=== PATIENT | female | born 1980 | race Hispanic/Latino ===

== ENCOUNTER 2018-07-27 08:24 | Emergency (ER) | payer SELFPAY ==
[~2018-07-27] VITALS: Ht 152.4 cm; Wt 86.2 kg
--- OUTSIDE RECORDS SUMMARY | 2018-07-27 08:26 | XMS REPORT | Clinical Summary ---
Author Author [facility] Organization Formerly [facility] Address Unknown Phone Unavailable Care Team Providers Care Shear Helper Name Role Phone Pcp, No PCP Unavailable Allergies No Known Allergies Medications End Date Status Medication Sig Dispensed Refills Start Date 06/28/2018 Discontinued nitrofurantoin, Take 1 10 capsule 0 macrocrystal-monohydrate, capsule (100 9 (MACROBID) 100 MG capsule mg total) by mouth 2 (two) times daily for 5 days. Active Problems Not on file Encounters Care Team Description Date Type Specialty Philip Jackson MD Globus sensation (Primary Dx) 06/28/2018 Emergency Emergency Medicine 06/28/2018 Travel after 07/26/2017 Social History Date Tobacco Use Types Packs/Day Years Used Never Assessed Sex Assigned at Date Recorded Not on file Industry Job Start Date Occupation Not on file Not on file Not on file Travel End Travel History Travel Start No recent travel history available. Last Filed Vital Signs Time Taken Vital Sign Reading 06/28/2018 8:15 AM POST TENSIONING IRONWORK[employer] HELPER Blood Pressure 115/90 06/28/2018 8:15 AM POST TENSIONING IRONWORKER HELPER Pulse 90 06/28/2018 5:42 AM POST TENSIONING IRONWORKER HELPER Temperature 36.9 C (98.5 F) 06/28/2018 5:42 AM POST TENSIONING IRONWORKER HELPER Respiratory Rate 18 06/28/2018 8:15 AM POST TENSIONING IRONWORKER HELPER Oxygen Saturation 100% - Inhaled Oxygen - Concentration 06/28/2018 5:42 AM POST TENSIONING IRONWORKER HELPER Weight 74.8 kg (165 lb) 06/28/2018 5:42 AM POST TENSIONING IRONWORKER HELPER Height 149.9 cm (4' 11") 06/28/2018 5:42 AM POST TENSIONING IRONWORKER HELPER Body Mass Index 33.33 Plan of Treatment Not on file Procedures Comments Procedure Name Priority Date/Time Associated Diagnosis XR NECK SOFT TISSUE STAT 06/28/2018 6:43 AM POST TENSIONING IRONWORKER HELPER after 07/26/2017 Results * XR neck soft tissue (06/28/2018 6:43 AM POST TENSIONING IRONWORKER HELPER) Narrative Performed At Addendum Begins GE RIS REPORT STATUS:A The following addendum is being made to expand on the patient's clinical history, and does not substantially change the findings or recommendations of the original report. Additional history: Retained food bolus Signed: JR Rodriguez Robert MD Report Verified Date/Time:07/14/2018 11:12:42 Reading Location: [address] Reading Room Addendum Ends FINAL REPORT RAD, NECK, SOFT TISSUE INDICATION: possible foreign body COMPARISON: None FINDINGS: Frontal and lateral views of the cervical soft tissues. Examination is limited by body habitus. Prevertebral soft tissue structures are unremarkable. Visible portions of the aerodigestive tract are clear. The epiglottis is normal in size. No acute osseous abnormality is present. The temporomandibular joints are normally aligned. IMPRESSION: Limited by body habitus. No foreign object in the visible aerodigestive tract. If there is high clinical suspicion, consider CT evaluation. Signed: JR Rodriguez Robert MD Report Verified Date/Time:06/28/2018 07:28:49 Reading Location: [address] Reading Room Procedure Note Interface, External Ris In - 07/14/2018 11:14 AM CDT Addendum Begins REPORT STATUS:A The following addendum is being made to expand on the patient's clinical history, and does not substantially change the findings or recommendations of the original report. Additional history: Retained food bolus Signed: JR Rodriguez Robert MD Report Verified Date/Time: 07/14/2018 11:12:42 Reading Location: [address] Reading Room Addendum Ends FINAL REPORT RAD, NECK, SOFT TISSUE INDICATION: possible foreign body COMPARISON: None FINDINGS: Frontal and lateral views of the cervical soft tissues. Examination is limited by body habitus. Prevertebral soft tissue structures are unremarkable. Visible portions of the aerodigestive tract are clear. The epiglottis is normal in size. No acute osseous abnormality is present. The temporomandibular joints are normally aligned. IMPRESSION: Limited by body habitus. No foreign object in the visible aerodigestive tract. If there is high clinical suspicion, consider CT evaluation. Signed: JR Rodriguez Robert MD Report Verified Date/Time: 06/28/2018 07:28:49 Reading Location: [facility] C013V Neuro Reading Room Performing Organization Address City/State/Zipcode Phone Number GE RIS after 07/26/2017
--- OUTSIDE RECORDS SUMMARY | 2018-07-27 08:26 | XMS REPORT ---
Author Author [facility] Address Unknown Phone Unavailable Care Team Providers Care Property Insurance Agent Name Role Phone Unavailable Unavailable Payers Payer Name Policy Type Policy Number Effective Date Expiration Date Problems This patient has no known problems. Allergies, Adverse Reactions, Alerts Allergy Name Allergy Type Status Severity Reaction(s) Onset Date Inactive Date Treating Clinician Comments No Known Allergies DA Active U 2018 00:00:00 No Known Allergies DA Active U 2017-03-20 00:00:00 Medications This patient has no known medications. Results Test Description Test Time Test Comments Text Results Atomic Results Result Comments TROPONIN-I 2018-07-25 11:58:00 TROPONIN-I (test code=TROPI) <0.015 ng/mL 0-0.045 COMMENTS TO TEXTILE KNITTER: COLLECT 3 HOURS AFTER PREVIOUS [id number] 09:31:00* Test Item Value Reference Range Comments TROPONIN-I (test code=TROPI) <0.015 ng/mL 0-0.045 COMMENTS TO TEXTILE KNITTER: COLLECT 3 HOURS AFTER PREVIOUS SAMPLEURINALYSIS [id number] 01:33:00* Test Item Value Reference Range Comments UA COLOR (test code=COLU) YELLOW YELLOW UA APPEARANCE (test code=APPU) SLIGHTLY CLOUDY CLEAR UA GLUCOSE DIPSTICK (test code=DGLUU) NEGATIVE mg/dL NEGATIVE UA BILIRUBIN DIPSTICK (test code=BILU) NEGATIVE mg/dL NEGATIVE UA KETONE DIPSTICK (test code=KETU) Negative mg/dL NEGATIVE UA SPECIFIC GRAVITY (test code=SGU) 1.029 1.001-1.035 UA BLOOD DIPSTICK (test code=KIRAN) 1+ (Small) NEGATIVE UA PH DIPSTICK (test code=JASVIR) 5.0 5.0-8.0 UA PROTEIN DIPSTICK (test code=PROU) Negative mg/dL NEGATIVE UA UROBILINIOGEN DIPSTICK (test code=URO) 2.0 mg/dL NEGATIVE UA NITRITE DIPSTICK (test code=LORAINE) NEGATIVE NEGATIVE UA LEUKOCYTE ESTERASE W REFLEX (test code=LEUUR) NEGATIVE NEGATIVE UA WBC (test code=WBCU) 0-5 #/HPF 0-5 UA RBC (test code=RBCU) 6-10 #/HPF 0-5 UA EPITHELIAL CELLS (test code=EPIU) FEW per HPF FEW UA BACTERIA (test code=BACU) FEW #/HPF NONE UA MUCUS (test code=MUCU) FEW #/LPF FEW Urine Source? Clean Catch- CT ABD PELVIS [id number] 01:15:00 Name: BALTAZAR FAYE [facility] : 1980 Age/S: 38 / F [address] [facility] Unit #: [id number] Loc: [place] [address] Phys: Jordan Krishna MD Acct: [id number] Di s Date: Status: REG ER PHONE #: [phone] Exam Date: 07/25/2018 0057 FAX #: [phone] Reason: LLQ pain EXAMS: CPT CODE: [id number] CT ABD PELVIS W/CONT [id number] EXAM: - CT ABD PELVIS W/ CONT HISTORY: Left lower quadrant pain. TECHNIQUE: A xial tomograms through the abdomen and pelvis were obtained after intraven ous contrast. Coronal and sagittal reformatted images are provided. This exam was performed according to our departmental dose-optimization program, which includes automated exposure control, adjustment of the mA a nd/or kV according to patient size and/or use of iterative reconstruction technique. COMPARISON: 03/30/2017. FINDINGS: The visualized lung bases are clear. Status post cholecyste ctomy. There is fatty infiltration of the liver. The spleen, pancreas, adr enal glands and kidneys demonstrate no significant abnormalities. There is acute inflammation in left lower quadrant were colon divert iculosis. There is no evidence of free air or fluid collection. T he bowel is not distended. There is no adenopathy or free fluid. There is no acute osseous abnormality. IMPR ESSION: Acute sigmoid colon diverticulitis. Electr onically Signed by Cristian Tello MD on 07/25/2018 at 0115 Reported and signed by: Cristian Tello MD PAGE 1 Signed Report (CONTINUED) Name: [facility] : 1980 Age/S: 38 / F [address] [facility] Unit #: [id number] Loc: [place] [address] Phys: Jordan Krishna MD Acct: [id number] Dis Date: Status: REG ER PHONE #: [phone] Exam Date: 005 FAX #: [phone] Reason: LLQ pain EXAMS: CPT CODE: [id number] CT ABD PELVIS W/CONT [id number] <Continued> CC: Jordan Krishna MD Technologist:LIMA ALLEN, RT; Andrea Medina CTDI: DLP: Trnscb Date/Time: 07/25/2018 (011) [email or web address] Orig Print D/T: S: 07/25/2018 (0118) CTDI: DLP: PAGE 2 Signed Report BASIC METABOLIC [id number] 00:30:00* Test Item Value Reference Range Comments SODIUM (test code=NA) 140 mmol/L 136-145 POTASSIUM (test code=K) 3.7 mmol/L 3.5-5.1 CHLORIDE (test code=CL) 108.0 mmol/L 98-107 CARBON DIOXIDE (test code=CO2) 27.0 mmol/L 21-32 ANION GAP (test code=GAP) 8.7 10-20 GLUCOSE (test code=GLU) 112 mg/dL 74-106 BLOOD UREA NITROGEN (test code=BUN) 13 mg/dL 7-18 GLOMERULAR FILTRATION RATE (test code=GFR) > 60 mL/min >=60 Estimated GFR by using Modified MDRD formula.Chronic kidney disease is defined as either kidney damageor GFR <60 mL/min/1.73 m2 for >3 months. CREATININE (test code=CREAT) 0.90 mg/dL 0.55-1.02 Note change in reference range due to change in reagent. BUN/CREATININE RATIO (test code=BUN/CREA) 14.4 10-20 CALCIUM (test code=CA) 9.1 mg/dL 8.5-10.1 HEPATIC FUNCTION [id number] 00:30:00* Test Item Value Reference Range Comments TOTAL PROTEIN (test code=PROT) 7.7 gram/dL 6.4-8.2 ALBUMIN (test code=ALB) 4.0 g/dL 3.4-5.0 GLOBULIN (test code=GLOB) 3.7 gram/dL 2.7-4.2 ALBUMIN/GLOBULIN RATIO (test code=A/G) 1.1 0.75-1.50 BILIRUBIN TOTAL (test code=BILT) 0.40 mg/dL 0.0-1.0 BILIRUBIN DIRECT (test code=BILD) 0.08 mg/dL 0.0-0.20 SGOT/AST (test code=AST) 20 IUnit/L 15-37 SGPT/ALT (test code=ALT) 43 IUnit/L 12-78 ALKALINE PHOSPHATASE TOTAL (test code=ALKP) 95 IUnit/L 45-117 Note change in reference range due to change in reagent. [id number] 00:30:00* Test Item Value Reference Range Comments LIPASE (test code=LIP) 93 U/L 73.0-393.0 HCG SERUM [id number] 00:30:00* Test Item Value Reference Range Comments HCG SERUM QUAL (test code=HCGQL) NEGATIVE NEGATIVE This HCGQL test is NOT applicable for MALE patients.Check with nurse about probable order error.If Tumor Marker Test needed, nurse should order test "HCGTU"(Test #550.04977) BASIC METABOLIC [id number] 23:18:00* Test Item Value Reference Range Comments SODIUM (test code=NA) 140 mmol/L 136-145 POTASSIUM (test code=K) 3.7 mmol/L 3.5-5.1 CHLORIDE (test code=CL) 108.0 mmol/L 98-107 CARBON DIOXIDE (test code=CO2) 27.0 mmol/L 21-32 ANION GAP (test code=GAP) 8.7 10-20 GLUCOSE (test code=GLU) 112 mg/dL 74-106 BLOOD UREA NITROGEN (test code=BUN) 13 mg/dL 7-18 GLOMERULAR FILTRATION RATE (test code=GFR) > 60 mL/min >=60 Estimated GFR by using Modified MDRD formula.Chronic kidney disease is defined as either kidney damageor GFR <60 mL/min/1.73 m2 for >3 months. CREATININE (test code=CREAT) 0.90 mg/dL 0.55-1.02 Note change in reference range due to change in reagent. BUN/CREATININE RATIO (test code=BUN/CREA) 14.4 10-20 CALCIUM (test code=CA) 9.1 mg/dL 8.5-10.1 HEPATIC FUNCTION [id number] 23:18:00* Test Item Value Reference Range Comments TOTAL PROTEIN (test code=PROT) 7.7 gram/dL 6.4-8.2 ALBUMIN (test code=ALB) 4.0 g/dL 3.4-5.0 GLOBULIN (test code=GLOB) 3.7 gram/dL 2.7-4.2 ALBUMIN/GLOBULIN RATIO (test code=A/G) 1.1 0.75-1.50 BILIRUBIN TOTAL (test code=BILT) 0.40 mg/dL 0.0-1.0 BILIRUBIN DIRECT (test code=BILD) 0.08 mg/dL 0.0-0.20 SGOT/AST (test code=AST) 20 IUnit/L 15-37 SGPT/ALT (test code=ALT) 43 IUnit/L 12-78 ALKALINE PHOSPHATASE TOTAL (test code=ALKP) 95 IUnit/L 45-117 Note change in reference range due to change in reagent. [id number] 23:18:00* Test Item Value Reference Range Comments LIPASE (test code=LIP) 93 U/L 73.0-393.0 HCG SERUM [id number] 23:18:00* Test Item Value Reference Range Comments HCG SERUM QUAL (test code=HCGQL) NEGATIVE BASIC METABOLIC [id number] 23:15:00* Test Item Value Reference Range Comments SODIUM (test code=NA) 140 mmol/L 136-145 POTASSIUM (test code=K) 3.7 mmol/L 3.5-5.1 CHLORIDE (test code=CL) 108.0 mmol/L 98-107 CARBON DIOXIDE (test code=CO2) mmol/L 21-32 ANION GAP (test code=GAP) 10-20 GLUCOSE (test code=GLU) mg/dL 74-106 BLOOD UREA NITROGEN (test code=BUN) mg/dL 7-18 GLOMERULAR FILTRATION RATE (test code=GFR) mL/min >=60 CREATININE (test code=CREAT) mg/dL 0.55-1.02 BUN/CREATININE RATIO (test code=BUN/CREA) 10-20 CALCIUM (test code=CA) mg/dL 8.5-10.1 HEPATIC FUNCTION [id number] 23:15:00* Test Item Value Reference Range Comments TOTAL PROTEIN (test code=PROT) gram/dL 6.4-8.2 ALBUMIN (test code=ALB) g/dL 3.4-5.0 GLOBULIN (test code=GLOB) gram/dL 2.7-4.2 ALBUMIN/GLOBULIN RATIO (test code=A/G) 0.75-1.50 BILIRUBIN TOTAL (test code=BILT) mg/dL 0.0-1.0 BILIRUBIN DIRECT (test code=BILD) mg/dL 0.0-0.20 SGOT/AST (test code=AST) IUnit/L 15-37 SGPT/ALT (test code=ALT) IUnit/L 12-78 ALKALINE PHOSPHATASE TOTAL (test code=ALKP) IUnit/L 45-117 [id number] 23:15:00* Test Item Value Reference Range Comments LIPASE (test code=LIP) U/L 73.0-393.0 HCG SERUM [id number] 23:15:00* Test Item Value Reference Range Comments HCG SERUM QUAL (test code=HCGQL) NEGATIVE TROPONIN I [id number] 23:01:00* Test Item Value Reference Range Comments TROPONIN I RAPID (test code=TROPIRAP) 0.00 ng/mL <0.08 Please Note New Reference Range 0.00-0.079 ng/mL - Negative>or=0.08 ng/mL - Positive The use of serial sampling and testing protocol is arecommended practice.An elevated troponin level alone is often not sufficient fordiagnosis of myocardial infarction. Troponin results obtained by different assays may vary.Evaluation of the extent of myocardial damage based onincrease of troponin would be valid only if similarmethodology is used. CBC W/O [id number] 22:55:00* Test Item Value Reference Range Comments WHITE BLOOD CELL (test code=WBC) K/mm3 4.5-12.5 RED BLOOD CELL (test code=RBC) mill/mm3 3.7-5.2 HEMOGLOBIN (test code=HGB) 14.4 gram/dL 11.5-15.5 HEMATOCRIT (test code=HCT) 44.7 % 36.0-46.0 MEAN CELL VOLUME (test code=MCV) fL 80-98 MEAN CELL HGB (test code=MCH) picogram 27.0-33.0 MEAN CELL HGB CONCETRATION (test code=MCHC) gram/dL 33.0-36.0 RED CELL DISTRIBUTION WIDTH (test code=RDW) % 11.6-16.2 PLATELET COUNT (test code=PLT) K/mm3 150-450 MEAN PLATELET VOLUME (test code=MPV) fL 6.7-11.0 CBC W/O [id number] 22:55:00* Test Item Value Reference Range Comments WHITE BLOOD CELL (test code=WBC) 13.7 K/mm3 4.5-12.5 RED BLOOD CELL (test code=RBC) 5.10 mill/mm3 3.7-5.2 HEMOGLOBIN (test code=HGB) 14.4 gram/dL 11.5-15.5 HEMATOCRIT (test code=HCT) 44.7 % 36.0-46.0 MEAN CELL VOLUME (test code=MCV) 87.6 fL 80-98 MEAN CELL HGB (test code=MCH) 28.2 picogram 27.0-33.0 MEAN CELL HGB CONCETRATION (test code=MCHC) 32.2 gram/dL 33.0-36.0 RED CELL DISTRIBUTION WIDTH (test code=RDW) 12.4 % 11.6-16.2 PLATELET COUNT (test code=PLT) 328 K/mm3 150-450 MEAN PLATELET VOLUME (test code=MPV) 11.1 fL 6.7-11.0 RAD, NECK, SOFT [id number] 11:12:00Reason for exam:->possible foreign body Addendum BeginsREPORT STATUS:A The following addendum is being made to expand on the patient's clinical history, and does not substantial ly change the findings or recommendations of the original report. Additional his tory: Retained food bolus Signed: JR Rodriguez Robert MDReport Verified Jayjay e/Time: 07/14/2018 11:12:42 Reading Location: [facility] C013 Neuro Reading RoomAd dendum EndsFINAL REPORT RAD, NECK, SOFT TISSUE INDICATION : possible foreign body COMPARISON: None FINDINGS:Frontal and lateral views of t he cervical soft tissues. Examination is limited by body habitus. Prevertebral s oft tissue structures are unremarkable. Visible portions of the aerodigestive tr act are clear. The epiglottis is normal in size. No acute osseous abnormality is present. The temporomandibular joints are normally aligned. IMPRESSION: Limited by body habitus. No foreign object in the visible aerodigestive tract. If there is high clinical suspicion, consider CT evaluation. Signed: JR Rodriguez Robert MDReport Verified Date/Time: 06/28/2018 07:28:49 Reading Location: [facility] C013 Neuro Reading Room Electronically signed by: ANSHUL gonzalez 07/14/2018 11:12 AM URINALYSIS [id number] 01:37:00* Test Item Value Reference Range Comments UA COLOR (test code=COLU) YELLOW YELLOW UA APPEARANCE (test code=APPU) CLEAR CLEAR UA GLUCOSE DIPSTICK (test code=DGLUU) NEGATIVE mg/dL NEGATIVE UA BILIRUBIN DIPSTICK (test code=BILU) NEGATIVE mg/dL NEGATIVE UA KETONE DIPSTICK (test code=KETU) Negative mg/dL NEGATIVE UA SPECIFIC GRAVITY (test code=SGU) 1.014 1.001-1.035 UA BLOOD DIPSTICK (test code=KIRAN) 1+ (Small) NEGATIVE UA PH DIPSTICK (test code=JASVIR) 5.0 5.0-8.0 UA PROTEIN DIPSTICK (test code=PROU) Negative mg/dL NEGATIVE UA UROBILINIOGEN DIPSTICK (test code=URO) NEGATIVE mg/dL NEGATIVE UA NITRITE DIPSTICK (test code=LORAINE) NEGATIVE NEGATIVE UA LEUKOCYTE ESTERASE W REFLEX (test code=LEUUR) NEGATIVE NEGATIVE UA WBC (test code=WBCU) 0-5 #/HPF 0-5 UA RBC (test code=RBCU) 0-2 #/HPF 0-5 UA EPITHELIAL CELLS (test code=EPIU) FEW per HPF FEW UA BACTERIA (test code=BACU) FEW #/HPF NONE UA MUCUS (test code=MUCU) FEW #/LPF FEW Urine Source? Clean CatchDRUGS OF ABUSE SCREEN [id number] 01:37:00* Test Item Value Reference Range Comments URN COCAINE (test code=COCAURN) NEGATIVE <300 ng/mL URN CANNABINOIDS (test code=CANNABURN) NEGATIVE <50 ng/mL URN AMPHETAMINE (test code=AMPHETURN) NEGATIVE <1000 ng/mL URN BARBITURATE (test code=BARBITURN) NEGATIVE <200 ng/mL URN BENZODIAZEPINE (test code=BENZOURN) NEGATIVE <200 ng/mL URN OPIATES (test code=OPIATURN) NEGATIVE <300 ng/mL URN PHENCYCLIDINE (PCP) (test code=PHENCURN) NEGATIVE <25 ng/mL URN METHADONE (test code=METHAURN) NEGATIVE <300 ng/mL Urine Source? Clean CatchURINALYSIS [id number] 01:27:00* Test Item Value Reference Range Comments UA COLOR (test code=COLU) YELLOW YELLOW UA APPEARANCE (test code=APPU) CLEAR CLEAR UA GLUCOSE DIPSTICK (test code=DGLUU) NEGATIVE mg/dL NEGATIVE UA BILIRUBIN DIPSTICK (test code=BILU) NEGATIVE mg/dL NEGATIVE UA KETONE DIPSTICK (test code=KETU) Negative mg/dL NEGATIVE UA SPECIFIC GRAVITY (test code=SGU) 1.014 1.001-1.035 UA BLOOD DIPSTICK (test code=KIRAN) 1+ (Small) NEGATIVE UA PH DIPSTICK (test code=JASVIR) 5.0 5.0-8.0 UA PROTEIN DIPSTICK (test code=PROU) Negative mg/dL NEGATIVE UA UROBILINIOGEN DIPSTICK (test code=URO) NEGATIVE mg/dL NEGATIVE UA NITRITE DIPSTICK (test code=LORAINE) NEGATIVE NEGATIVE UA LEUKOCYTE ESTERASE W REFLEX (test code=LEUUR) NEGATIVE NEGATIVE UA WBC (test code=WBCU) 0-5 #/HPF 0-5 UA RBC (test code=RBCU) 0-2 #/HPF 0-5 UA EPITHELIAL CELLS (test code=EPIU) FEW per HPF FEW UA BACTERIA (test code=BACU) FEW #/HPF NONE UA MUCUS (test code=MUCU) FEW #/LPF FEW Urine Source? Clean CatchDRUGS OF ABUSE SCREEN [id number] 01:27:00* Test Item Value Reference Range Comments URN COCAINE (test code=COCAURN) <300 ng/mL URN CANNABINOIDS (test code=CANNABURN) <50 ng/mL URN AMPHETAMINE (test code=AMPHETURN) <1000 ng/mL URN BARBITURATE (test code=BARBITURN) <200 ng/mL URN BENZODIAZEPINE (test code=BENZOURN) <200 ng/mL URN OPIATES (test code=OPIATURN) <300 ng/mL URN PHENCYCLIDINE (PCP) (test code=PHENCURN) <25 ng/mL URN METHADONE (test code=METHAURN) <300 ng/mL Urine Source? Clean CatchBASIC METABOLIC [id number] 00:47:00* Test Item Value Reference Range Comments SODIUM (test code=NA) 142 mmol/L 136-145 POTASSIUM (test code=K) 3.3 mmol/L 3.5-5.1 CHLORIDE (test code=CL) 106.0 mmol/L 98-107 CARBON DIOXIDE (test code=CO2) 28.0 mmol/L 21-32 ANION GAP (test code=GAP) 11.3 10-20 GLUCOSE (test code=GLU) 108 mg/dL 74-106 BLOOD UREA NITROGEN (test code=BUN) 11 mg/dL 7-18 GLOMERULAR FILTRATION RATE (test code=GFR) > 60 mL/min >=60 Estimated GFR by using Modified MDRD formula.Chronic kidney disease is defined as either kidney damageor GFR <60 mL/min/1.73 m2 for >3 months. CREATININE (test code=CREAT) 0.80 mg/dL 0.55-1.02 Note change in reference range due to change in reagent. BUN/CREATININE RATIO (test code=BUN/CREA) 13.0 10-20 CALCIUM (test code=CA) 9.0 mg/dL 8.5-10.1 HCG SERUM [id number] 00:47:00* Test Item Value Reference Range Comments HCG SERUM QUAL (test code=HCGQL) NEGATIVE NEGATIVE This HCGQL test is NOT applicable for MALE patients.Check with nurse about probable order error.If Tumor Marker Test needed, nurse should order test "HCGTU"(Test #550.97355) [id number] 00:47:00* Test Item Value Reference Range Comments TROPONIN-I (test code=TROPI) <0.015 ng/mL 0-0.045 BASIC METABOLIC [id number] 00:33:00* Test Item Value Reference Range Comments SODIUM (test code=NA) 142 mmol/L 136-145 POTASSIUM (test code=K) 3.3 mmol/L 3.5-5.1 CHLORIDE (test code=CL) 106.0 mmol/L 98-107 CARBON DIOXIDE (test code=CO2) mmol/L 21-32 ANION GAP (test code=GAP) 10-20 GLUCOSE (test code=GLU) mg/dL 74-106 BLOOD UREA NITROGEN (test code=BUN) mg/dL 7-18 GLOMERULAR FILTRATION RATE (test code=GFR) mL/min >=60 CREATININE (test code=CREAT) mg/dL 0.55-1.02 BUN/CREATININE RATIO (test code=BUN/CREA) 10-20 CALCIUM (test code=CA) mg/dL 8.5-10.1 HCG SERUM [id number] 00:33:00* Test Item Value Reference Range Comments HCG SERUM QUAL (test code=HCGQL) NEGATIVE NEGATIVE This HCGQL test is NOT applicable for MALE patients.Check with nurse about probable order error.If Tumor Marker Test needed, nurse should order test "HCGTU"(Test #550.51169) [id number] 00:33:00* Test Item Value Reference Range Comments TROPONIN-I (test code=TROPI) ng/mL 0-0.045 BASIC METABOLIC [id number] 00:32:00* Test Item Value Reference Range Comments SODIUM (test code=NA) 142 mmol/L 136-145 POTASSIUM (test code=K) 3.3 mmol/L 3.5-5.1 CHLORIDE (test code=CL) 106.0 mmol/L 98-107 CARBON DIOXIDE (test code=CO2) mmol/L 21-32 ANION GAP (test code=GAP) 10-20 GLUCOSE (test code=GLU) mg/dL 74-106 BLOOD UREA NITROGEN (test code=BUN) mg/dL 7-18 GLOMERULAR FILTRATION RATE (test code=GFR) mL/min >=60 CREATININE (test code=CREAT) mg/dL 0.55-1.02 BUN/CREATININE RATIO (test code=BUN/CREA) 10-20 CALCIUM (test code=CA) mg/dL 8.5-10.1 HCG SERUM [id number] 00:32:00* Test Item Value Reference Range Comments HCG SERUM QUAL (test code=HCGQL) NEGATIVE [id number] 00:32:00* Test Item Value Reference Range Comments TROPONIN-I (test code=TROPI) ng/mL 0-0.045 CBC W/O [id number] 00:14:00* Test Item Value Reference Range Comments WHITE BLOOD CELL (test code=WBC) 14.5 K/mm3 4.5-12.5 RED BLOOD CELL (test code=RBC) 4.86 mill/mm3 3.7-5.2 HEMOGLOBIN (test code=HGB) 14.1 gram/dL 11.5-15.5 HEMATOCRIT (test code=HCT) 42.8 % 36.0-46.0 MEAN CELL VOLUME (test code=MCV) 88.1 fL 80-98 MEAN CELL HGB (test code=MCH) 29.0 picogram 27.0-33.0 MEAN CELL HGB CONCETRATION (test code=MCHC) 32.9 gram/dL 33.0-36.0 RED CELL DISTRIBUTION WIDTH (test code=RDW) 12.7 % 11.6-16.2 PLATELET COUNT (test code=PLT) 304 K/mm3 150-450 MEAN PLATELET VOLUME (test code=MPV) 10.4 fL 6.7-11.0 CBC W/O [id number] 00:13:00* Test Item Value Reference Range Comments WHITE BLOOD CELL (test code=WBC) K/mm3 4.5-12.5 RED BLOOD CELL (test code=RBC) mill/mm3 3.7-5.2 HEMOGLOBIN (test code=HGB) 14.1 gram/dL 11.5-15.5 HEMATOCRIT (test code=HCT) 42.8 % 36.0-46.0 MEAN CELL VOLUME (test code=MCV) fL 80-98 MEAN CELL HGB (test code=MCH) picogram 27.0-33.0 MEAN CELL HGB CONCETRATION (test code=MCHC) gram/dL 33.0-36.0 RED CELL DISTRIBUTION WIDTH (test code=RDW) % 11.6-16.2 PLATELET COUNT (test code=PLT) K/mm3 150-450 MEAN PLATELET VOLUME (test code=MPV) fL 6.7-11.0
[2018-07-27] MEDS ORDERED: METRONIDAZOLE 500MG/NS 100ML 100 ML IV STA (09:26)
[2018-07-27] MEDS ORDERED: LEVOFLOXACIN 750MG/D5W 150ML 150 ML IV STA (09:26)
[2018-07-27] MEDS ORDERED: TRAMADOL HCL 50 MG TAB PO ONE (09:30)
[2018-07-27 10:31] LABS: CLARITY,URINE HAZY (CLEAR); COLOR,URINE YELLOW (YELLOW)
[2018-07-27 10:32] LABS: BILIRUBIN,URINE NEGATIVE (NEGATIVE); KETONES,URINE TRACE (NEGATIVE); LEUKOCYTE ESTERASE ,URINE TRACE (NEGATIVE); NITRITE,URINE NEGATIVE (NEGATIVE); PROTEIN,URINE DIPSTICK NEGATIVE (NEGATIVE); URINE UROBILINOGEN 0.2 mg/dL (0.2 - 1)
[2018-07-27 11:21] LABS: EPITHELIAL CELLS,URINE MANY /LPF; RBC,URINE 0-5 /HPF (0-5)
[2018-07-27 11:22] LABS: BACTERIA,URINE RARE /HPF
[2018-07-27 12:01] LABS: BASOPHILS % 0.4 % (0.0-1.0); EOSINOPHILS # (AUTO) 0.1 (0.0-0.4); EOSINOPHILS % 1.5 % (0.0-6.0); HEMATOCRIT 41.7 % (34.2-44.1); HEMOGLOBIN 14.1 g/dL (12.0-16.0); LYMPHOCYTES # (AUTO) 2.2 (1.0-3.2); LYMPHOCYTES % 23.6 % (18.0-39.1); MEAN CORPUSCULAR HEMOGLOBIN 29.1 pg (28-32); MEAN CORPUSCULAR HGB CONC 33.8 g/dL (31-35); MONOCYTES # (AUTO) 0.7 (0.2-0.8); MONOCYTES % 6.9 % (4.4-11.3); NEUTROPHILS # (AUTO) 6.3 (2.1-6.9); NEUTROPHILS % 67.2 % (38.7-80.0); PLATELET COUNT 307 x10e3/uL (140-360); RED BLOOD COUNT 4.85 x10e6/uL (3.6-5.1); RED CELL DISTRIBUTION WIDTH 12.5 % (11.7-14.4)
[2018-07-27] MEDS ORDERED: SODIUM CHLORIDE 0.9% 1000ML 1,000 ML ONE (12:03)
[2018-07-27] MEDS ORDERED: METRONIDAZOLE500 MG PO (12:12)
[2018-07-27] MEDS ORDERED: ULTRAM 50MG50 MG PO (12:12)
[2018-07-27] MEDS ORDERED: CIPRO500 MG PO (12:12)
[2018-07-27 12:22] LABS: ALANINE AMINOTRANSFERASE 26 IU/L (0-55); ALBUMIN 3.7 g/dL (3.5-5.0); ALBUMIN/GLOBULIN RATIO 0.9 (0.8-2.0); ALKALINE PHOSPHATASE 71 IU/L (40-150); ANION GAP 13.5 mmol/L (8-16); BLOOD UREA NITROGEN 11 mg/dL (7-26); BUN/CREATININE RATIO 14 (6-25); CALCIUM 9.3 mg/dL (8.4-10.2); CARBON DIOXIDE 24 mmol/L (22-29); CHLORIDE 102 mmol/L (98-107); CREATININE, SERUM 0.81 mg/dL (0.57-1.11); EST GLOMERULAR FILTRATION RATE > 60 ML/MIN (60-); GLUCOSE 90 mg/dL (74-118); POTASSIUM 3.5 mmol/L (3.5-5.1); SODIUM 136 mmol/L (136-145)
[2018-07-27 13:07] VITALS: BP 106/76
== END 2018-07-27 14:06 | disposition home or self-care (01) ==
LOC: ER 08:24
DX: R10.32 Left lower quadrant pain (principal); R11.0 Nausea; R19.7 Diarrhea, unspecified; K57.32 Diverticulitis of large intestine without perforation or abscess without bleeding
CPT/HCPCS: 36415; 80053; 81001; 85025; 99283; J7030

== ENCOUNTER 2018-08-13 20:05 | Emergency (ER) | payer SELFPAY ==
[~2018-08-13] VITALS: Ht 152.4 cm; Wt 86.2 kg
[~2018-08-13 20:05] MED LIST: CIPRO500 MG PO; METRONIDAZOLE500 MG PO; ULTRAM 50MG50 MG PO
--- OUTSIDE RECORDS SUMMARY | 2018-08-13 20:07 | XMS REPORT | Clinical Summary ---
Author Author ROXANNE [facility] Organization [facility] Address Unknown Phone Unavailable Care Team Providers Care Child Care Leader Name Role Phone Pcp, No PCP Unavailable [...] 06/28/2018 Emergency Emergency Medicine 06/28/2018 Travel after 08/12/2017 Social History Date Tobacco Use Types Packs/Day Years Used Never Assessed Sex Assigned at Date Recorded Not on file Industry Job Start Date Occupation Not on file Not on file Not on file Travel End Travel History Travel Start No recent travel history available. Last Filed Vital Signs Time Taken Vital Sign Reading 06/28/2018 8:15 AM [employer] Blood Pressure 115/90 06/28/2018 8:15 AM [employer] Pulse 90 06/28/2018 5:42 AM [employer] Temperature 36.9 C (98.5 F) 06/28/2018 5:42 AM [employer] Respiratory Rate 18 06/28/2018 8:15 AM [employer] Oxygen Saturation 100% - Inhaled Oxygen - Concentration 06/28/2018 5:42 AM [employer] Weight 74.8 kg (165 lb) 06/28/2018 5:42 AM [employer] Height 149.9 cm (4' 11") 06/28/2018 5:42 AM [employer] Body Mass Index 33.33 Plan of Treatment Not on file Procedures Comments Procedure Name Priority Date/Time Associated Diagnosis XR NECK SOFT TISSUE STAT 06/28/2018 6:43 AM [employer] after 08/12/2017 Results * XR neck soft tissue (06/28/2018 6:43 AM [employer]) Narrative Performed At Addendum Begins GE RIS REPORT STATUS:A The following addendum is being made to expand on the patient's clinical history, and does not substantially change the findings or recommendations of the original report. Additional history: Retained food bolus Signed: JR Rodriguze Robert MD Report Verified Date/Time:07/14/2018 11:12:42 Reading Location: [address] Reading Room Addendum Ends FINAL REPORT [...] MD Report Verified Date/Time:06/28/2018 07:28:49 Reading Location: [address] Reading Room Procedure Note Interface, External Ris In - 07/14/2018 11:14 AM CDT Addendum Begins REPORT STATUS:A The following addendum is being made to expand on the patient's clinical history, and does not substantially change the findings or recommendations of the original report. Additional history: Retained food bolus Signed: JR Rodriguez Robert MD Report Verified Date/Time: 07/14/2018 11:12:42 Reading Location: [address] Reading Room Addendum Ends FINAL REPORT [...] Report Verified Date/Time: 06/28/2018 07:28:49 Reading Location: [facility] [id number] Neuro Reading Room Performing Organization Address City/State/Zipcode Phone Number GE RIS after 08/12/2017
[2018-08-13] MEDS ORDERED: SODIUM CHLORIDE 0.9% 1000ML 1,000 ML IV STA (20:19)
[2018-08-13] MEDS ORDERED: ONDANSETRON HCL INJ 2MG/ML 2ML 2 MG/ML VIAL IV ONE (20:30)
== END 2018-08-13 20:30 | disposition left against medical advice (07) ==
LOC: ER 20:05
DX: R42 Dizziness and giddiness (principal)

== ENCOUNTER 2021-01-16 21:36 | Emergency (ER) | payer SELFPAY ==
[~2021-01-16] VITALS: Ht 152.4 cm; Wt 86.2 kg
[2021-01-16] MEDS ORDERED: SODIUM CHLORIDE 0.9% 1000ML 1,000 ML IV STA (21:38)
[2021-01-16 22:12] LABS: BASOPHILS % 0.2 % (0.0-1.0); EOSINOPHILS # (AUTO) 0.2 (0.0-0.4); EOSINOPHILS % 1.1 % (0.0-6.0); HEMATOCRIT 43.2 % (34.2-44.1); LYMPHOCYTES # (AUTO) 3.1 (1.0-3.2); LYMPHOCYTES % 18.5 % (18.0-39.1); MEAN CORPUSCULAR HEMOGLOBIN 29.5 pg (28-32); MEAN CORPUSCULAR HGB CONC 34.7 g/dL (31-35); MONOCYTES # (AUTO) 0.9 (0.2-0.8); MONOCYTES % 5.7 % (4.4-11.3); NEUTROPHILS # (AUTO) 12.3 (2.1-6.9); PLATELET COUNT 323 x10e3/uL (140-360); RED BLOOD COUNT 5.08 x10e6/uL (3.6-5.1); RED CELL DISTRIBUTION WIDTH 12.5 % (11.7-14.4)
[2021-01-16 22:33] LABS: ALBUMIN 3.8 g/dL (3.5-5.0); ANION GAP 17.3 mmol/L (8-16); CALCIUM 8.6 mg/dL (8.4-10.2); CREATININE, SERUM 0.81 mg/dL (0.57-1.11); POTASSIUM 3.3 mmol/L (3.5-5.1)
[2021-01-16 22:39] LABS: CREATINE KINASE MB 0.9 ng/mL (0-5.0)
[2021-01-16] MEDS ORDERED: ACETAMINOPHEN 325 MG TAB PO ONE (23:15)
[2021-01-16] MEDS ORDERED: ACETAMINOPHEN 325 MG TAB ONE (23:16)
[2021-01-16] MEDS ORDERED: ONDANSETRON HCL INJ 2MG/ML 2ML 2 MG/ML VIAL IV STA (23:36)
[2021-01-16] MEDS ORDERED: MECLIZINE HCL12.5 MG PO (23:46)
[2021-01-16] MEDS ORDERED: ZOFRAN4 MG SL (23:46)
[2021-01-17 00:22] LABS: CLARITY,URINE CLOUDY (CLEAR); COLOR,URINE YELLOW (YELLOW); KETONES,URINE TRACE (NEGATIVE); LEUKOCYTE ESTERASE ,URINE NEGATIVE (NEGATIVE); NITRITE,URINE NEGATIVE (NEGATIVE); PROTEIN,URINE DIPSTICK NEGATIVE (NEGATIVE); URINE UROBILINOGEN 0.2 mg/dL (0.2 - 1)
[2021-01-17 00:27] LABS: AMORPHOUS SEDIMENT,URINE MODERATE (FEW); BACTERIA,URINE FEW /HPF; EPITHELIAL CELLS,URINE MANY /LPF; WBC,URINE (MAN) 0-5 /HPF (0-5)
== END 2021-01-17 01:15 | disposition home or self-care (01) ==
LOC: ER 21:38
DX: R42 Dizziness and giddiness (principal); E03.9 Hypothyroidism, unspecified; F41.9 Anxiety disorder, unspecified; Z87.19 Personal history of other diseases of the digestive system
CPT/HCPCS: 36415; 70450; 80053; 81001; 82550; 82553; 84484; 84702; 85025; 93005; 99284; J2405; J7030

== ENCOUNTER 2021-08-08 22:33 | Emergency (ER) | payer SELFPAY ==
[~2021-08-08] VITALS: Ht 152.4 cm; Wt 86.2 kg
[~2021-08-08 22:33] MED LIST changes: +MECLIZINE HCL12.5 MG PO; +ZOFRAN4 MG SL
== END 2021-08-09 01:40 | disposition home or self-care (01) ==
LOC: ER 22:47
DX: R10.12 Left upper quadrant pain (principal); K57.92 Diverticulitis of intestine, part unspecified, without perforation or abscess without bleeding; E03.9 Hypothyroidism, unspecified; F41.9 Anxiety disorder, unspecified
CPT/HCPCS: 74022; 81025; 99283